=== PATIENT | female | born 1990 | race Caucasian/White ===

== ENCOUNTER 2016-10-07 16:10 | Inpatient (IN) ==
[~2016-10-07 16:10] MED LIST: Famotidine 20 MG/2 ML VIAL IVP PRN; Metoclopramide 10 MG/2 ML VIAL IVP PRN; Naloxone 0.4 MG/ML INJ IVP PRN; Oxytocin 20 units/ LR 1000 mL 20 UNIT/1,000 ML BAG IVC ONE
[2016-10-07] MEDS ORDERED: Lidocaine 1% 20 ML MDV ONE (16:15)
--- NOTE | 2016-10-07 16:36 | OB/GYN Procedure Note ---
Delivery - Delivery Date: 10/07/16 Provider: Suzy Lozano Intrapartum events: meconium, precipitous labor- <3hr Delivery induction: none Delivery augmentation: rupture of membranes Delivery monitor: external FHT, external uterine Anesthesia: none Estimated Blood Loss: 150 - Infant (s) A Infant Delivery Date: 10/07/16 Infant Delivery Time: 16:35 Presentation: vertex Position: ROP Route of delivery: Gender: Female Viability: Viable at 1 minute: 8 at 5 mins: 9 Shoulder Dystocia: not encountered Specimens collected: cord blood Placenta: spontaneous Cord: 3 umbilical vessels - Repair Episiotomy: none Laceration Description: Perineal - 1st Degree - Complications Delivery complications: none Delivery comments: Pt presented to L&D 8cm dilated with regular contractions. She progressed rapidly to 9cm with BBOW and AROM was performed for light MSF. She then progressed to complete and pushed effectively to in ROP position for viable female with apgars 8 at one minute and 9 at five minutes. After pulsations ceased the cord was clamped and cut and the placenta delivered spontaneous and intact. A small first degree perinal laceration was repaired with 3-0 vicryl. EBL 150ml. Mother and baby stable in kangaroo care following delivery. - Disposition Mom disposition: stable in LDR disposition: stable in LDR
[2016-10-07] MEDS ORDERED: Measles/Mumps/Rubella Vacc 0.5 ML VIAL SQ PRN (16:42)
[2016-10-07] MEDS ORDERED: Benzocaine/Menthol 56 GM AEROSOL SPRAY TP PRN (16:42)
[2016-10-07] MEDS ORDERED: Acetaminophen 325 MG TABLET PO PRN (16:42)
[2016-10-07] MEDS ORDERED: Lanolin 28 GM TUBE TP PRN (16:42)
[2016-10-07] MEDS ORDERED: Oxytocin 20 units/ LR 1000 mL 20 UNIT/1,000 ML BAG IVC SCH (16:45)
--- NOTE | 2016-10-07 16:48 | OB/GYN History & Physical ---
Date of Encounter: 10/07/16 Time of Encounter: 16:40 Assessment and Plan (1) 39 weeks gestation of Current visit: Yes Status: Acute (2) Spontaneous onset of labor Current visit: Yes Status: Acute Pt was admitted and delivered precipitously. She will recover in L&D for 2 hours before being moved to the floor. (3) Late care affecting in third trimester Current visit: Yes Status: Acute History of Present Illness Chief complaint: labor HPI: Ms. Hauser is a 26 year old female presented in active labor at 8cm dilated and proceeded to deliver precipitously. This has been complicated by late care and S<D. Transfer of Care from [facility] at 26 weeks. Labs 05/22/2016 Blood type A positive. Antibody screen negative. Rubella immune HIV negative Hepatitis B negative Hepatitis C negative Treponema negative Past Med Surg Social Fam HX - Past Medical History Medical history: no medical history Psychiatric history: no psych history - Social History Smoking Status: Never smoker Smokeless Tobacco Status: No Alcohol use: none Drug use: none - Family History Father Hx Family Cardiac Disorders: Yes (HTN) Obstetrical History - Pregnancies : 4 Para: 2 Ab's: 1 Livin Medications and Allergies Vit/Iron Fumarate/FA [ Tablet] 1 tab PO DAILY 10/07/16 [History ] Allergies No Known Allergies Allergy (Verified 10/07/16 15:40) Review of System OB All systems PM: reviewed and no additional remarkable complaints except as stated Exam - Constitutional Constitutional: well developed, well nourished - HEENT HEENT: Mucus Membranes Moist - Lungs Respiratory exam: CTAB - Cardiovascular Cardiovascular exam: RRR, +S1, +S2 - Abdomen Abdomen: Present: non tender - Extremities Extremities exam: normal inspection - Cervix Dilation: 8 (on arrival) - Anus/Rectum Anus/Rectum: Present: normal perianal skin Results All other labs normal. - VTE Reasons for not Prescribing Prophylaxis: Treatment not Indicated - Low risk for VTE
[2016-10-07 17:53] LABS: Basophils % 0.2 %; Eosinophils % 0.2 %; Hemoglobin 11.4 g/dL (11.5-15.4); Immature Granulocytes % 0.5 % (0-4); Lymphocytes # 1.3 K/mcL (0.6-4.6); Lymphocytes % 9.3 %; Mean Corpuscular HGB Conc 34.5 g/dL (31.6-35.5); Mean Corpuscular Hemoglobin 29.4 pg (28.0-33.3); Mean Corpuscular Volume 85.1 fL (83.0-100.0); Mean Platelet Volume 11.7 fL (9.4-12.4); Monocytes # 0.7 K/mcL (0.0-1.3); Monocytes % 4.6 %; Neutrophils # 12.3 K/mcL (1.6-8.9); Platelet Count 213 K/mcL (140-400); Red Blood Count 3.88 M/mcL (3.82-4.97); Red Cell Distribution Width 12.3 % (11.5-14.5); Segmented Neutrophils % 85.2 %
[2016-10-07] MEDS: Ibuprofen 600 MG TABLET PO PRN (19:51)
[2016-10-08] MEDS: Prenatal Vit/FA 1 EACH TABLET PO SCH (07:54)
--- NOTE | 2016-10-08 10:23 | OB/GYN Progress Note ---
Date of Encounter: 10/08/16 Time of Encounter: 10:21 - Assessment and Plan (1) (normal spontaneous vaginal delivery) Current Visit: Yes Status: Acute Pt meeting PPD#1 milestones. Continue to monitor and work on . Anticipate discharge home PPD#2. (2) Mother currently breast-feeding Current Visit: Yes Status: Acute Subjective - Subjective Interval history: Pt reports feeling well. States her bottom is sore but pain is well controlled with Dermoplast spray. No other complaints. Patient reports: appetite normal, voiding normally, pain well controlled, ambulating normally : in NICU (having SpO2 desaturations, on O2 via NC), nursing well Objective - Latest Vital Signs Latest vital signs: Vital Signs Temp Pulse Resp BP Pulse Ox 10/08/16 07:55 97.9 F 79 14 120/79 99 10/08/16 04:00 98.2 F 66 18 119/81 99 10/07/16 20:30 98.2 F 81 16 122/86 98 10/07/16 19:30 98.3 F 91 16 128/89 99 10/07/16 18:38 16 10/07/16 18:30 98.6 F 77 16 124/84 98 Intake and Output 10/07/16 10/08/16 10/08/16 23:59 07:59 15:59 Intake Total 1200 / 1200 600 / 600 700 / 700 Output Total 1100 / 1100 1000 / 1000 550 / 550 Balance 100 / 100 -400 / -400 150 / 150 Intake: IV Fluids 1000 / 1000 Pitocin 20 unit In 1,000 1000 / 1000 ml @ 125 mls/hr IVC .Q8H [facility] Rx#:[id number] Oral 200 / 200 600 / 600 700 / 700 Output: Urine 950 / 950 1000 / 1000 550 / 550 Estimated Blood Loss 150 / 150 Other: Meal Dinner Percent of Meal Consumed 50% Weight 98.6 kg 97.8 kg Patient Weight 10/08/16 23:59 Weight 97.8 kg - Exam Lungs: bilateral: normal Chest: Normal S1, Normal S2 Extremities: Present: normal, edema Abdomen: Present: soft Uterus: Present: firm - Labs Labs: Laboratory Results - last 24 hr 10/07/16 15:40 WBC 14.4 H RBC 3.88 Hgb 11.4 L Hct 33.0 L MCV 85.1 MCH 29.4 MCHC 34.5 RDW 12.3 Plt Count 213 MPV 11.7 Immature Gran % 0.5 Seg Neutrophils % 85.2 Lymphocytes % 9.3 Monocytes % 4.6 Eosinophils % 0.2 Basophils % 0.2 Neutrophils # 12.3 H Lymphocytes # 1.3 Monocytes # 0.7 Eosinophils # 0.0 Basophils # 0.0
[2016-10-08] MEDS: Ibuprofen 600 MG TABLET PO PRN ×2 (13:01→20:34)
[2016-10-09] MEDS: Ibuprofen 600 MG TABLET PO PRN (04:22)
--- NOTE | 2016-10-09 07:51 | Discharge Summary ---
Date of Encounter: 10/09/16 Time of Encounter: 07:51 - Discharge Diagnosis (1) (normal spontaneous vaginal delivery) Priority: Primary Status: Acute Comments: Post vaginal delivery day 2 Patient states she is doing well. Lochia is scant; no clots Pain in her bottom in tolerable "feels bruised" and the dermoplast spray is helping. Cramping is minimal - she states the motrin helps She denies headache, vision changes, and epigastric pain. Discharge to guest today if infant is not discharged. (2) Mother currently breast-feeding Priority: Secondary Status: Acute Comments: is going well without any problems. - Discharge Medications Prescriptions: Ibuprofen [Motrin] 600 mg PO Q6HR PRN #30 tablet PRN Reason: Cramping Home Medications: Vit/Iron Fumarate/FA [ Tablet] 1 tab PO DAILY 10/07/16 [History ] Benzocaine/Menthol [place] [Dermoplast [place]] 1 appl TP QID PRN #0 aerosol [Rx] Docusate [Colace] 100 mg PO BID capsule 10/09/16 [Rx] Ferrous Sulfate 325 mg PO DAILY tablet 10/09/16 [Rx] Ibuprofen [Motrin] 600 mg PO Q6HR PRN #30 tablet 10/09/16 [Rx] Lanolin 1 appl TP Q4HR PRN #0 tube 10/09/16 [Rx] Allergies/Adverse Reactions: Allergies No Known Allergies Allergy (Verified 10/07/16 15:40) Data Procedures and tests throughout hospitalization: Laboratory Tests 10/07/16 15:40 WBC 14.4 H RBC 3.88 Hgb 11.4 L Hct 33.0 L MCV 85.1 MCH 29.4 MCHC 34.5 RDW 12.3 Plt Count 213 MPV 11.7 Immature Gran % 0.5 Seg Neutrophils % 85.2 Lymphocytes % 9.3 Monocytes % 4.6 Eosinophils % 0.2 Basophils % 0.2 Neutrophils # 12.3 H Lymphocytes # 1.3 Monocytes # 0.7 Eosinophils # 0.0 Basophils # 0.0 Date of admission: 10/07/16 16:10 Consults: 10/07/16 16:42 Consult to Credentialer [CONS] Routine Comment: Vaginal delivery, consult needed Discharging clinician: Airam Kerns - Patient Status Disposition: Home, Self-Care Condition: Good Functional capacity at discharge: independent ambulation Overall status at discharge: patient is back to baseline - Discharge Instructions Follow Up With: Suzy Lozano CNM [Non-Partnered Physician] - - Diet and Activity Activity: increase activity as tolerated Diet: regular diet Hospital Course Reason for admission: active labor, IUP at term Delivery: Episiotomy: none Laceration: 1st degree Other procedures: none complications: none Discharge diagnosis: IUP at term delivered [place] baby: female Time Attestation: Total time spent providing and/or coordinating discharge services: Time Spent: Less than 30 minutes Exam - Constitutional Vitals: Temp Pulse Resp BP Pulse Ox 98.1 F 80 14 128/84 100 10/08/16 21:00 10/08/16 21:00 10/08/16 21:00 10/08/16 21:00 10/08/16 21:00 General appearance IM: cooperative, A&O X 3, pleasant - Respiratory Respiratory exam: Present: CTAB - Cardiovascular Cardiovascular exam IM: Present: RRR, +S1, +S2 - GI/Abdominal GI/Abdominal exam IM: normal bowel sounds, soft - Rectal Rectal exam: deferred - Uterine Tone: Firm Uterus Position: 1 Finger Below Umbilicus, Midline - Extremities Exam Extremities exam IM: Present: normal capillary refill, normal inspection, radial pulses palpable and symetrical. Absent: calf tenderness, tenderness - Neurological Exam Neurological exam: alert, oriented X3
[2016-10-09] MEDS: Prenatal Vit/FA 1 EACH TABLET PO SCH (07:55)
[2016-10-09 08:23] VITALS: BP 126/86
== END 2016-10-09 12:50 | disposition home or self-care (01) | DRG 560 ==
LOC: 1NENULAB → 1NENUOBS 18:51
PROVIDERS: ADMIT Obstetrics & Gynecology; ATTEND Obstetrics & Gynecology

== ENCOUNTER 2018-12-31 20:16 | Inpatient (IN) ==
[~2018-12-31 20:16] MED LIST changes: +Ondansetron 4 MG/2 ML VIAL IVP PRN; -Oxytocin 20 units/ LR 1000 mL 20 UNIT/1,000 ML BAG IVC ONE
--- NOTE | 2018-12-31 20:20 | OB/GYN History & Physical ---
Date of Encounter: 12/31/18 Time of Encounter: 20:17 Assessment and Plan (1) 41 weeks gestation of Current visit: Yes Status: Acute admitted for spontaneous labor Dr. Locke aware of patient's assessment and admission History of Present Illness Chief complaint: Spontaneous labor HPI: Ms. Hauser is a 28 year old female @ 41w1d presents to labor and delivery with complaints of contractions that started around 0430 this morning. Patient reports good movement. Patient denies LOF or VB. Patient denies any complications with current . Patient receives care with [facility]. Blood type: A + Rubella:Immune Hep B: nonreactive GBS: negative Past Med Surg Social Fam HX - Past Medical History Source: patient Medical history: no medical history Psychiatric history: no psych history - Past Surgical History Additional surgical history: T&A - Social History Smoking Status: Never smoker Smokeless Tobacco Status: No Alcohol use: none Drug use: none Current living situation: Home - Independent Activity Level: Independent ambulation Recent Out of Country Travel Within the Last 8 Weeks: No Exposure or Possible Exposure to Illness During Travel: No - Family History Father Hx Family Cardiac Disorders: Yes (HTN) Obstetrical History - Pregnancies : 5 Para: 3 Term: 3 : 0 Ab's: 1 Livin Medications and Allergies Vit/Iron Fumarate/FA [ Tablet] 1 tab PO DAILY 10/07/16 [History] Benzocaine/Menthol [place] [Dermoplast [place]] 1 appl TP QID PRN #0 aerosol 10/09/16 [Rx] Docusate [Colace] 100 mg PO BID capsule 10/09/16 [Rx] Ferrous Sulfate 325 mg PO DAILY tablet 10/09/16 [Rx] Ibuprofen [Motrin] 600 mg PO Q6HR PRN #30 tablet 10/09/16 [Rx] Lanolin 1 appl TP Q4HR PRN #0 tube 10/09/16 [Rx] Allergy/AdvReac Type Severity Reaction Status Date / Time No Known Allergies Allergy Verified 10/07/16 15:40 Review of System OB - Constitutional Constitutional ROS IM: no chills, no fever(s), no headache(s) - Cardiovascular Cardiovascular: no chest pain, no edema, no lightheadedness, no palpitations, no syncope - Respiratory Respiratory: no cough - Gastrointestinal Gastrointestinal: no constipation, no heartburn, no nausea, no vomiting - Genitourinary Genitourinary: no abnormal vaginal bleeding, no dysuria, no flank pain, no urinary frequency, no urinary hesitancy, no urinary urgency, no vaginal odor, no vaginal pruritis Exam - Constitutional Constitutional: well developed, well nourished, no acute distress, average body habitus - HEENT HEENT: Normocephaly, Mucus Membranes Moist - Neck Neck exam: full ROM, supple - Lungs Respiratory exam: CTAB - Cardiovascular Cardiovascular exam: RRR, +S1, +S2 - Abdomen Abdomen: Present: bowel sounds normal, gravid, non tender - Extremities Extremities exam: full ROM, normal inspection Deep Tendon Reflex Grade: 2+ Normal - Vagina Vagina: Present: normal moisture - Cervix Dilation: 7 Effacement: 100 Station: -1 - Uterus Uterus exam: Present: normal size, normal contour - Anus/Rectum Anus/Rectum: Present: normal perianal skin - Comments Comments: FHR 130 bpm moderate variability +15x15 accels no decels noted at this time. Contractions 3-4 min apart. Results All other labs normal. - VTE Reasons for not Prescribing Prophylaxis: Treatment not Indicated - Low risk for VTE
[2018-12-31 20:53] LABS: Basophils % 0.2 %; Eosinophils # 0.1 K/mcL (0.0-0.6); Eosinophils % 0.8 %; Hematocrit 33.8 % (35.3-44.9); Hemoglobin 11.7 g/dL (11.5-15.4); Immature Granulocytes % 0.2 % (0-4); Lymphocytes # 2.2 K/mcL (0.6-4.6); Lymphocytes % 24.8 %; Mean Corpuscular HGB Conc 34.6 g/dL (31.6-35.5); Mean Corpuscular Hemoglobin 31.1 pg (28.0-33.3); Mean Corpuscular Volume 89.9 fL (83.0-100.0); Mean Platelet Volume 11.2 fL (9.4-12.4); Monocytes # 0.6 K/mcL (0.0-1.3); Monocytes % 6.5 %; Neutrophils # 5.9 K/mcL (1.6-8.9); Platelet Count 172 K/mcL (140-400); Red Blood Count 3.76 M/mcL (3.82-4.97); Segmented Neutrophils % 67.5 %; White Blood Count 8.7 K/mcL (4.3-11.1)
[2018-12-31] MEDS ORDERED: Ibuprofen 600 MG TABLET PO PRN (22:00)
--- NOTE | 2018-12-31 22:09 | OB/GYN Procedure Note ---
Delivery - Delivery Date: 12/31/18 Provider: Christine Johnson Intrapartum events: meconium Delivery induction: none Delivery augmentation: rupture of membranes (@9 cm) Delivery monitor: external FHT, external uterine Anesthesia: none Quantitated Blood Loss: 50 - Infant (s) A Infant Delivery Date: 12/31/18 Infant Delivery Time: 21:48 Presentation: vertex Position: OA Route of delivery: Gender: Male Viability: Viable Pounds: 8 Ounces: 2 at 1 minute: 8 at 5 mins: 9 Shoulder Dystocia: not encountered Specimens collected: cord blood Placenta: spontaneous Cord: 3 umbilical vessels - Repair Laceration Description: None - Complications Delivery complications: none - Disposition Mom disposition: stable in LDR [place] disposition: stable in LDR - Comments Comments: Called to LDR, patient requesting AROM. AROM small amount of meconium stained fluid noted. Patient immediately reports she needs to push and is placed in stirrups and prepped for vaginal delivery. Under maternal effort patient spontaneously delivered a viable male over an intact perineum. No nuchal cord or shoulder dystocia was encountered. Infant was placed on maternal abdomen skin to skin. Cord was clamped and cut after pulsations ceased. Cord segment and cord blood collected. Placenta delivered spontaneously and visually intact. EBL 50cc, Apgars 8/9. Both mother and stable in LDR for 2 hour recovery. has not been weighed at this time.
[2019-01-01] MEDS ORDERED: Benzocaine/Menthol 56 GM AEROSOL SPRAY TP PRN (00:26)
[2019-01-01] MEDS ORDERED: Lanolin 7 G OINT...G. TP PRN (00:26)
[2019-01-01] MEDS ORDERED: Ibuprofen 600 MG TABLET PO PRN (00:26)
[2019-01-01] MEDS ORDERED: *HR* HYDROcodone/Acet 5/325 mg TABLET PO PRN (00:26)
[2019-01-01] MEDS ORDERED: Acetaminophen 325 MG TABLET PO PRN (00:26)
[2019-01-01] MEDS ORDERED: Prenatal Vit/FA 1 EACH TABLET PO SCH (09:00)
--- NOTE | 2019-01-01 10:13 | Discharge Summary ---
Date of Encounter: 01/01/19 Time of Encounter: 10:09 - Discharge Diagnosis (1) (normal spontaneous vaginal delivery) Priority: Primary Status: Acute Comments: S/P Vaginal delivery day 1 Pain is well controlled Lochia is light and without clots VSS Tolerating regular diet, passing flatus Voiding without difficulty Breast feeding Discharge home today - Discharge Medications Prescriptions: New Breast Pump [BREAST PUMP] 1 each .ROUTE AD #1 each Docusate [Colace] 100 mg PO BID #30 capsule Benzocaine/Menthol [place] [Dermoplast [place]] 1 appl TP QID PRN aerosol PRN Reason: See Comments Lanolin [Lansinoh] 1 appl TP TID PRN oint...g. PRN Reason: Sore Nipples Ibuprofen [Motrin] 600 mg PO Q6HR PRN #30 tablet PRN Reason: Cramping Acetaminophen [Tylenol] 650 mg PO Q6HR PRN tablet PRN Reason: Mild Pain Continued Vit/Iron Fumarate/FA [ Tablet] 1 tab PO DAILY Home Medications: Vit/Iron Fumarate/FA [ Tablet] 1 tab PO DAILY 10/07/16 [History] Acetaminophen [Tylenol] 650 mg PO Q6HR PRN tablet 01/01/19 [Rx] Benzocaine/Menthol [place] [Dermoplast [place]] 1 appl TP QID PRN aerosol 01/01/19 [Rx] Breast Pump [BREAST PUMP] 1 each .ROUTE AD #1 each 01/01/19 [Rx] Docusate [Colace] 100 mg PO BID #30 capsule 01/01/19 [Rx] Ibuprofen [Motrin] 600 mg PO Q6HR PRN #30 tablet 01/01/19 [Rx] Lanolin [Lansinoh] 1 appl TP TID PRN oint...g. 01/01/19 [Rx] Allergies/Adverse Reactions: Allergy/AdvReac Type Severity Reaction Status Date / Time No Known Allergies Allergy Verified 12/31/18 20:32 Data Procedures and tests throughout hospitalization: Laboratory Tests 12/31/18 20:15 WBC 8.7 RBC 3.76 L Hgb 11.7 Hct 33.8 L MCV 89.9 MCH 31.1 MCHC 34.6 RDW 12.0 Plt Count 172 MPV 11.2 Immature Gran % 0.2 Seg Neutrophils % 67.5 Lymphocytes % 24.8 Monocytes % 6.5 Eosinophils % 0.8 Basophils % 0.2 Neutrophils # 5.9 Lymphocytes # 2.2 Monocytes # 0.6 Eosinophils # 0.1 Basophils # 0.0 Labs on day of discharge: Labs from last 24 hours 12/31/18 20:15 WBC 8.7 RBC 3.76 L Hgb 11.7 Hct 33.8 L MCV 89.9 MCH 31.1 MCHC 34.6 RDW 12.0 Plt Count 172 MPV 11.2 Immature Gran % 0.2 Seg Neutrophils % 67.5 Lymphocytes % 24.8 Monocytes % 6.5 Eosinophils % 0.8 Basophils % 0.2 Neutrophils # 5.9 Lymphocytes # 2.2 Monocytes # 0.6 Eosinophils # 0.1 Basophils # 0.0 Date of admission: 12/31/18 20:16 Primary care physician: PCP NONE Consults: 01/01/19 00:26 Consult to Director Client [CONS] Routine Comment: Vaginal delivery, consult needed Discharging clinician: Airam Kerns Anticipated date of discharge: 01/01/19 - Patient Status Disposition: Home, Self-Care Condition: Good Functional capacity at discharge: independent ambulation Overall status at discharge: patient is progressing back to baseline - Discharge Instructions Follow Up With: NONE,PCP [Primary Care Provider] - Christine Johnson CNM [Non-Partnered Physician] - - Diet and Activity Activity: increase activity as tolerated Diet: regular diet Hospital Course Reason for admission: IUP at term Delivery: Episiotomy: none Laceration: none Other procedures: none complications: none Discharge diagnosis: IUP at term delivered [place] baby: male Time Attestation: Total time spent providing and/or coordinating discharge services: Time Spent: Less than 30 minutes Exam - Constitutional Vitals: Temp Pulse Resp BP Pulse Ox 97.8 F 74 16 121/84 100 01/01/19 07:40 01/01/19 07:40 01/01/19 07:40 01/01/19 07:40 01/01/19 07:40 General appearance IM: cooperative, A&O X 3, pleasant - Respiratory Respiratory exam: Present: CTAB - Cardiovascular Cardiovascular exam IM: Present: RRR, +S1, +S2 - GI/Abdominal GI/Abdominal exam IM: normal bowel sounds, soft - Rectal Rectal exam: deferred - Uterine Tone: Firm Uterus Position: 2 Fingers Below Umbilicus, Midline - Extremities Exam Extremities exam IM: Present: normal capillary refill, normal inspection, radial pulses palpable and symmetrical - Neurological Exam Neurological exam: alert, oriented X3
[2019-01-01 17:07] VITALS: BP 126/81
== END 2019-01-01 17:11 | disposition home or self-care (01) | DRG 560 ==
LOC: 1NENULAB → 1NENUOBS 01-01 00:25
PROVIDERS: ADMIT Advanced Practice Midwife; ATTEND Advanced Practice Midwife